=== PATIENT | male | born 1960 | race Caucasian/White ===

== ENCOUNTER 2023-04-19 14:43 | Emergency (ER) | payer MEDICARE ==
[~2023-04-19] VITALS: Ht 182.9 cm; Wt 73.5 kg
[2023-04-19 15:08] VITALS: BP 81/63; PULSE 99; RESP 12; TEMP 97.5; O2SAT 97
[2023-04-19 16:31] LABS: BASOPHILS # (AUTO) 0.1 K/uL (0.00-0.22); BASOPHILS % (AUTO) 0.7 % (0.0-2.0); EOSINOPHILS % (AUTO) 0.4 % (0.0-4.0); HEMATOCRIT 47.6 % (36-52); HEMOGLOBIN 16.7 g/dL (12.0-18.0); LYMPHOCYTES % (AUTO) 70.6 % (20.5-51.1); MEAN CORPUSCULAR HEMOGLOBIN 36 pg (27-31); MEAN CORPUSCULAR HGB CONC 35 g/dL (33-37); MEAN CORPUSCULAR VOLUME 102.6 fL (80-94); MONOCYTES # (AUTO) 0.4 K/uL (0.8-1.0); NEUTROPHILS # (AUTO) 2.4 K/uL (1.8-7.7); NEUTROPHILS % (AUTO) 24.3 % (42.2-75.2); PLATELET COUNT (AUTO) 179 K/uL (140-450); RED BLOOD CELL COUNT(AUTO) 4.64 MIL/uL (4.20-6.10); RED CELL DISTRIBUTION WIDTH 22.2 % (11.6-13.7); WHITE BLOOD COUNT (AUTO) 9.9 K/uL (4.8-10.8)
[2023-04-19 16:43] LABS: ANION GAP 18.7 (8-16); CALCIUM 9.4 mg/dL (8.5-10.1); CARBON DIOXIDE 23.1 mmol/L (21-32); CREATININE 2.4 mg/dL (0.6-1.3); POTASSIUM 4.8 mmol/L (3.5-5.1)
[2023-04-19 16:49] LABS: ALANINE AMINOTRANSFERASE 76 U/L (12-78); ALBUMIN 1.8 g/dL (3.4-5.0); ALKALINE PHOSPHATASE 382 U/L (50-136); ASPARTATE AMINOTRANSFERASE 181 U/L (15-37); BILIRUBIN,DIRECT 15.5 mg/dL (0.0-0.3); LIPASE 58 U/L (16-77); TOTAL BILIRUBIN 18.5 mg/dL (0.0-1.0); TOTAL PROTEIN, SERUM 8.1 g/dL (6.4-8.2)
[2023-04-19] MEDS ORDERED: NACL 0.9% 1,000 ML IV ONE (17:10)
[2023-04-19] MEDS ORDERED: NACL 0.9% 1,500 ML IV ONE (17:25)
[2023-04-19] MEDS ORDERED: ONDANSETRON 4 MG/2 ML VIAL IVP ONE (17:25)
[2023-04-19 19:45] LABS: LACTIC ACID 4.1 mmol/L (0.4-2.0)
[2023-04-19] MEDS ORDERED: PIPERACILLIN/TAZOBACTAM 3.375 GM in DEXTROSE 5% 50 ML IV ONE (19:50)
[2023-04-19] MEDS ORDERED: PIPERACILLIN/TAZOBACTAM 3.375 GM VIAL IV ONE (20:18)
[2023-04-20] LABS: APPEARANCE,URINE CLEAR (CLEAR); BILIRUBIN,URINE 3+ (NEGATIVE); BLOOD, URINE NEGATIVE (NEGATIVE); COLOR,URINE YELLOW (YELLOW); LEUKOCYTE ESTERASE ,URINE NEGATIVE (NEGATIVE); NITRITE, URINE NEGATIVE (NEGATIVE); PROTEIN,URINE NEGATIVE (NEGATIVE); UGLUCOSE NEGATIVE (NEGATIVE); UROBILINOGEN,URINE 0.2 EU/dL (0.2 - 1)
[2023-04-20 00:05] LABS: ICTOTEST POSITIVE (NEGATIVE)
[2023-04-20 01:44] VITALS: BP 104/85; PULSE 83; RESP 15; TEMP 97.3; O2SAT 95
== END 2023-04-20 01:44 | disposition short-term general hospital (02) ==
LOC: MED 14:43
DX: I95.9 Hypotension, unspecified (principal); E86.0 Dehydration; N17.9 Acute kidney failure, unspecified; E80.6 Other disorders of bilirubin metabolism; Z20.822 Contact with and (suspected) exposure to COVID-19; E87.20 Acidosis, unspecified; I10 Essential (primary) hypertension; Z85.038 Personal history of other malignant neoplasm of large intestine
CPT/HCPCS: 36415; 71045; 74176; 80048; 80076; 81003; 83605; 83690; 84484; 85025; 86886; 86900; 86901; 87040; 87426; 93005; 96361; 96365; 96375; 99291; J2405; J2543; J7030; Q0092; 99285